=== PATIENT | male | born 1985 | race Two or more races ===

== ENCOUNTER → 2023-09-09 | Emergency (ER) | payer OTHER ==
[~2023-09-09] MED LIST: MORPHINE 4 MG/ML SYR ONE; NA CHLORIDE 0.9% 1,000 ML ONE; ONDANSETRON 4 MG/2 ML VIAL ONE; PANTOPRAZOLE 40 MG INJ ONE
[2023-09-09 20:04] LABS: Absolute Lymphocytes (CBC) 2.2 K/uL (0.7-4.9); Hematocrit 46.5 % (39.6-49.0); Lymphocytes % 30.3 % (15.3-44.8); MCV 90.5 fL (80-100); MPV 8.7 fL (7.6-11.3); Platelets 188 thou/uL (152-406); RBC Red Blood Cell Count 5.14 M/uL (4.33-5.43)
--- NOTE | 2023-09-09 20:22 | RAD REPORT ---
EXAM DESCRIPTION: CTAbdomen Pelvis W Contrast - 09/09/2023 8:14 pm CLINICAL HISTORY: Abdominal pain. ABD PAIN COMPARISON: <Comparisons> TECHNIQUE: Biphasic CT imaging of the abdomen and pelvis was performed with 100 ml non-ionic IV cont rast. All CT scans are performed using dose optimization technique as appropriate and may include automated exposure control or mA/KV adjustment according to patient size. FINDINGS: The lung bases are clear. The liver contains a 3 cm low-density lesion lateral right lobe liver. This is nonspecific. Spleen, p ancreas, adrenal glands and kidneys are within normal limits. Punctate bilateral nephrolithiasis. No bowel obstruction, free air, free fluid or abscess. Moderate fat containing umbilical hernia. The appendix is normal. No evidence of significant lymphadenopathy. There is moderate right inguinal her vivek. No suspicious bony findings. IMPRESSION: Moderate fat containing umbilical hernia. Punctate bilateral nephrolithiasis without hydronephrosis. Indeterminate liver mass. Recommend follow-up outpatient MRI liver with contrast
[2023-09-09 20:24] LABS: Albumin 4.2 g/dL (3.4-5.0); Bilirubin Total 0.5 mg/dL (0.2-1.0); Potassium 3.8 mEq/L (3.5-5.1); Protein, Total 8.2 g/dL (6.4-8.2)
[2023-09-09 21:58] LABS: Specific Gravity > 1.030 (1.005-1.030); Urine Bilirubin NEGATIVE (Negative); Urine Blood Negative (Negative); Urine Clarity Clear (Clear); Urine Color Colorless (Yellow); Urine Glucose 4+ (Over) (Negative); Urine Protein NEGATIVE (Negative); Urine Urobilinogen Normal (Normal); Urine pH 5.5 (5.0-7.0)
--- NOTE | 2023-09-09 22:41 | ER ---
Nurse's Notes [facility] Name: Margi Sampson Age: 38 yrs Sex: Male : 1985 Arrival Date: 09/09/2023 Time: 19:21 Bed 6 Private MD: Diagnosis: Abdominal pain, Generalized Presentation: 09/09 19:32 Chief complaint: Patient states: left kidney pain radiating to left lower ABD. km8 Coronavirus screen: Client denies travel out of the [place] in the last 14 days. Ebola Screen: No symptoms or risks identified at this time. Initial Sepsis Screen: Does the patient meet any 2 criteria? No. Patient's initial sepsis screen is negative. Does the patient have a suspected source of infection? No. Patient's initial sepsis screen is negative. Risk Assessment: Do you want to hurt yourself or someone else? Patient reports desire/thoughts of hurting themselves or someone else. Provider notified. Onset of symptoms was August 26, 2023. 19:32 Method Of Arrival: Ambulatory km8 19:32 Acuity: GITA 3 km8 Triage Assessment: 19:32 General: Appears in no apparent distress. uncomfortable, Behavior is calm, cooperative, km8 appropriate for age. Pain: Complains of pain in right mid back Pain radiates to right lower quadrant Pain currently is 8 out of 10 on a pain scale. EENT: No signs and/or symptoms were reported regarding the EENT system. Neuro: Level of Consciousness is awake, alert, obeys commands, Oriented to person, place, time, situation. Cardiovascular: Denies chest pain, shortness of breath, Capillary refill < 3 seconds Patient's skin is warm and dry. Respiratory: Airway is patent Respiratory effort is even, unlabored, Respiratory pattern is regular, symmetrical. GI: Abdomen is obese, Reports lower abdominal pain, gaseousness, Patient currently denies diarrhea, nausea, vomiting. : No signs and/or symptoms were reported regarding the genitourinary system. Derm: No signs and/or symptoms reported regarding the dermatologic system. Skin is intact, is healthy with good turgor, Skin is dry, Skin is pink, warm \T\ dry. normal, Skin temperature is warm. Musculoskeletal: Circulation, motion, and sensation intact. Range of motion: intact in all extremities. Historical: - Allergies: 19:36 No Known Allergies; km8 - Home Meds: 19:36 Metformin Oral [Active]; Protonix Oral [Active]; 8 - PMHx: 19:36 PE; Diabetes mellitus; GERD; - PSHx: 19:36 back; urethra; km8 - Immunization history:: Client reports receiving the 2nd dose of the Covid vaccine, Flu vaccine is up to date. - Social history:: Smoking status: Patient denies any tobacco usage or history of. Patient uses street drugs, marijuana, Patient/guardian denies using alcohol, the patient reports quitting approximately .5 years ago. Screenin:50 [facility] ED Fall Risk Assessment (Adult) History of falling in the last 3 months, jb4 including since admission No falls in past 3 months (0 pts) Confusion or Disorientation No (0 pts) Score/Fall Risk Level 0 - 2 = Low Risk Oriented to surroundings, Maintained a safe environment. Abuse screen: Denies threats or abuse. Nutritional screening: No deficits noted. Tuberculosis screening: No symptoms or risk factors identified. Assessment: 20:50 General: Appears in no apparent distress. comfortable, Behavior is calm, cooperative, jb4 appropriate for age. Pain: Complains of pain in low back area and abdomen Pain does not radiate. Pain currently is 4 out of 10 on a pain scale. Neuro: Level of Consciousness is awake, alert, obeys commands, Oriented to person, place, time, situation. Cardiovascular: Patient's skin is warm and dry. Respiratory: Airway is patent Respiratory effort is even, unlabored, Respiratory pattern is regular, symmetrical. GI: No signs and/or symptoms were reported involving the gastrointestinal system. : No signs and/or symptoms were reported regarding the genitourinary system. EENT: No signs and/or symptoms were reported regarding the EENT system. Derm: Skin is intact, Skin is pink, warm \T\ dry. Musculoskeletal: Circulation, motion, and sensation intact. Range of motion: intact in all extremities. 22:25 Reassessment: Patient appears in no apparent distress at this time. Patient and/or jb4 family updated on plan of care and expected duration. Pain level reassessed. Patient is alert, oriented x 3, equal unlabored respirations, skin warm/dry/pink. Vital Signs: 19:32 BP 146 / 97; Pulse 88; Resp 16; Temp 98.2(IR); Pulse Ox 98% on R/A; Pain 8/10; km8 20:50 BP 127 / 83; Pulse 70; Resp 16; Pulse Ox 97% on R/A; jb4 22:25 BP 139 / 89; Pulse 78; Resp 16; Pulse Ox 97% on R/A; jb4 19:32 Pain Scale: Adult km8 ED Course: 19:27 Patient arrived in ED. gm2 19:28 Nelly Peng FNP-C is PHCP. kb 19:28 Silvio Bah MD is Attending Physician. kb 19:32 Arm band placed on right wrist. km8 19:34 Triage completed. km8 19:58 CBC with Diff Sent. bc6 19:58 CMP Sent. bc6 19:58 Lipase Sent. bc6 19:58 Inserted saline lock: 20 gauge in right antecubital area, using aseptic technique. bc6 Blood collected. 20:15 CT Abd/Pelvis - IV Contrast Only In Process Unspecified. EDMS 20:50 Patient has correct armband on for positive identification. Bed in low position. Call jb4 light in reach. Side rails up X 1. Client placed on continuous cardiac and pulse oximetry monitoring. NIBP monitoring applied. 22:24 Irving Mar, RN is Primary Nurse. jb4 22:49 No provider procedures requiring assistance completed. IV discontinued, intact, jb4 bleeding controlled, No redness/swelling at site. Pressure dressing applied. Administered Medications: 20:37 Drug: NS 0.9% IV 1000 ml IV at 1 bolus Per protocol; 1000 mL bolus Route: IV; Rate: 1 jb4 bolus; Site: right antecubital; 22:05 Drug: Pantoprazole IVP 40 mg IVP once Route: IVP; Site: right antecubital; jb4 22:05 Drug: morphine IVP or IV 4 mg IVP once over 4 mins Route: IVP; Infused Over: 4 mins; jb4 Site: right antecubital; 22:05 Drug: Ondansetron IVP 4 mg IVP once; over 2 minutes Route: IVP; Site: right antecubital;jb4 Outcome: 22:41 Discharge ordered by . kb 22:49 Discharged to home ambulatory, jb4 22:49 Condition: stable 22:49 Discharge instructions given to patient, Instructed on discharge instructions, follow up and referral plans. Demonstrated understanding of instructions, follow-up care, 22:49 Patient left the ED. jb4 Signatures: Dispatcher [employer] EDNelly Crooks, WARD HELPER-C WARD HELPER-Irving Blackmon, RN RN jb4 Rizwana Negrete 6 Irina Lloyd 2 Angella Macedo RN RN km8
--- NOTE | 2023-09-09 22:41 | EDPHYS ---
Physician Documentation [facility] Name: Margi Sampson Age: 38 yrs Sex: Male : 1985 Arrival Date: 09/09/2023 Time: 19:21 Bed 6 Private MD: ED Physician Silvio Bah HPI: 09/09 21:10 This 38 yrs old [place] Male presents to ER via Ambulatory with complaints of Low Back kb Pain, Abdominal Pain. 21:10 Pt is a 38 year old male who presents for diffuse abd pain and bilateral flank pain kb that started 2 weeks ago. Denies n/v/d, fever. States he has been passing more gas than normal. . Historical: - Allergies: 19:36 No Known Allergies; km8 - Home Meds: 19:36 Metformin Oral [Active]; Protonix Oral [Active]; km8 - PMHx: 19:36 PE; Diabetes mellitus; GERD; km8 - PSHx: 19:36 back; urethra; km8 - Immunization history:: Client reports receiving the 2nd dose of the Covid vaccine, Flu vaccine is up to date. - Social history:: Smoking status: Patient denies any tobacco usage or history of. Patient uses street drugs, marijuana, Patient/guardian denies using alcohol, the patient reports quitting approximately .5 years ago. ROS: 21:09 Constitutional: Negative for fever, chills, and weight loss, kb 21:09 Abdomen/GI: Positive for abdominal pain, 21:09 Back: Positive for flank pain, bilaterally, 21:09 All other systems are negative, Exam: 21:09 Constitutional: This is a well developed, well nourished patient who is awake, alert, kb and in no acute distress. Head/Face: Normocephalic, atraumatic. ENT: Moist Mucous membranes Cardiovascular: Regular rate Respiratory: Respirations even and unlabored. No increased work of breathing. Talking in full sentences Skin: Warm, dry with normal turgor. Normal color. MS/ Extremity: Pulses equal, no cyanosis. Neurovascular intact. Full, normal range of motion. Neuro: Awake and alert, GCS 15, oriented to person, place, time, and situation. Moves all extremities. Normal gait. 21:09 Abdomen/GI: Inspection: abdomen appears normal, Bowel sounds: normal, Palpation: soft, in all quadrants, mild abdominal tenderness, in all quadrants, moderate abdominal tenderness, 21:09 Back: CVA tenderness, that is mild, that is moderate, is noted bilaterally, Vital Signs: 19:32 BP 146 / 97; Pulse 88; Resp 16; Temp 98.2(IR); Pulse Ox 98% on R/A; Pain 8/10; km8 20:50 BP 127 / 83; Pulse 70; Resp 16; Pulse Ox 97% on R/A; jb4 22:25 BP 139 / 89; Pulse 78; Resp 16; Pulse Ox 97% on R/A; jb4 19:32 Pain Scale: Adult km8 MDM: 19:28 Patient medically screened. kb 21:10 Data reviewed: vital signs, nurses notes. kb 21:11 Differential diagnosis: diverticulitis, gastritis, gastroesophageal reflux disease, kb non-specific abd pain, pancreatitis. Counseling: I had a detailed discussion with the patient and/or guardian regarding the historical points, exam findings, and any diagnostic results supporting the discharge/admit diagnosis, lab results, radiology results, the need for outpatient follow up, a family practitioner, a counter intelligence agent, to return to the emergency department if symptoms worsen or persist or if there are any questions or concerns that arise at home. 22:40 ED course: Discussed all results including liver mass and recommendation for MRI. kb Verbal understanding received. . 09/09 19:39 Order name: CBC with Diff; Complete Time: 20:26 kb 09/09 19:39 Order name: CMP; Complete Time: 20:26 kb 09/09 19:39 Order name: Lipase; Complete Time: 20:26 kb 09/09 19:39 Order name: Urinalysis w/ reflexes; Complete Time: 22:25 kb 09/09 19:39 Order name: CT Abd/Pelvis - IV Contrast Only; Complete Time: 20:26 kb 09/09 19:39 Order name: IV Saline Lock; Complete Time: 19:58 kb 09/09 19:39 Order name: Labs collected and sent; Complete Time: 19:58 kb Administered Medications: 20:37 Drug: NS 0.9% IV 1000 ml IV at 1 bolus Per protocol; 1000 mL bolus Route: IV; Rate: 1 jb4 bolus; Site: right antecubital; 22:05 Drug: Pantoprazole IVP 40 mg IVP once Route: IVP; Site: right antecubital; jb4 22:05 Drug: morphine IVP or IV 4 mg IVP once over 4 mins Route: IVP; Infused Over: 4 mins; jb4 Site: right antecubital; 22:05 Drug: Ondansetron IVP 4 mg IVP once; over 2 minutes Route: IVP; Site: right antecubital;jb4 Disposition Summary: 09/09/23 22:41 Discharge Ordered Notes: Location: Home kb Condition: Stable kb Diagnosis - Abdominal pain, Generalized kb Followup: kb - With: Emergency Department - When: As needed - Reason: Worsening of condition Followup: kb - With: Private Physician - When: 2 - 3 days - Reason: Recheck today's complaints, Continuance of care, Re-evaluation by your physician Discharge Instructions: - Discharge Summary Sheet kb - Abdominal Pain, Adult, [id number] kb Forms: - Medication Reconciliation Form kb - Thank You Letter kb - Antibiotic Education kb - Prescription Opioid Use kb - Patient Portal Instructions kb - Leadership Thank You Letter kb Signatures: Dispatcher [employer] EDNelly Crooks, OMAR-C [employer] ADMINISTRATOR-Irving Blackmon, RN RN jb4 Angella Macedo, RN RN km8
[2023-09-10 05:33] VITALS: BP 139/89; TEMP 98.2; O2SAT 97
== END ==
LOC: EEVIPCON 19:21 → ER 19:21
DX: R10.84 Generalized abdominal pain (principal); E11.9 Type 2 diabetes mellitus without complications
CPT/HCPCS: 85025; 36415; 81003; 83690; 80053; 74177; Q9967; C9113; J2405; J7030